=== PATIENT | female | born 1940 | race Caucasian/White ===

== ENCOUNTER 2019-02-18 11:53 | Observation (INO) | payer MEDICARE, OTHER ==
[2019-02-17 15:18] LABS: ALBUMIN 3.7 G/DL (3.4-5.0); ANION GAP 4 (8-16); BLOOD UREA NITROGEN 13 MG/DL (7-18); BUN/CREATININE RATIO 16.3 (6.6-38.0); CALCIUM 9.7 MG/DL (8.5-10.1); CHLORIDE 102 MMOL/L (99-107); GLUCOSE 87 MG/DL (70-104); POTASSIUM 3.9 MMOL/L (3.5-5.1); SODIUM 139 MMOL/L (135-145); eGFR 70 ML/MIN
[2019-02-17 15:19] LABS: BASOPHILS # (AUTO) 0.1 X10'3 (0-0.2); BASOPHILS % (AUTO) 0.9 % (0-1); EOSINOPHILS # (AUTO) 0.3 X10'3 (0-0.9); EOSINOPHILS % (AUTO) 4.7 % (0-6); HEMATOCRIT 36.8 % (35.0-45.0); HEMOGLOBIN 12.7 g/dl (12.0-16.0); LYMPHOCYTES # (AUTO) 1.9 X10'3 (1.1-4.8); LYMPHOCYTES % (AUTO) 30.6 % (21-51); MEAN CORPUSCULAR HEMOGLOBIN 28.1 PG (27.0-31.0); MEAN CORPUSCULAR HGB CONC 34.4 g/dL (33.0-36.5); MEAN CORPUSCULAR VOLUME 81.8 FL (78-98); MEAN PLATELET VOLUME 8.3 FL (7.4-10.4); MONOCYTES # (AUTO) 0.5 X10'3 (0-0.9); MONOCYTES % (AUTO) 7.9 % (2-12); NEUTROPHILS # (AUTO) 3.5 X10'3 (1.8-7.7); NEUTROPHILS % (AUTO) 55.9 % (42-75); PLATELET COUNT 200 X10'3 (140-440); RED BLOOD COUNT 4.51 X10'6 (4.20-5.60); WHITE BLOOD COUNT 6.3 X10'3 (4.5-11.0)
[2019-02-17 15:36] LABS: PARTIAL THROMBOPLASTIN TIME 28 SECONDS (22-32)
[~2019-02-18] VITALS: Ht 162.6 cm; Wt 80.4 kg
[2019-02-18] VITALS (13 sets, daily range): BP systolic 93–200; BP diastolic 52–96
[~2019-02-18 11:53] MED LIST: ALPR-304 PO; ASPI81TA52 PO; ATOR10TA87 PO; LISI-600 PO; LOP25T PO; MAX25Tt PO; OMEG1CAP PO; POTA10TA10 PO
[2019-02-18] MEDS ORDERED: diphenhydrAMINE 25mg capsule PO PRN (12:15)
[2019-02-18] MEDS ORDERED: LORazepam 0.5 MG tablet PO PRN (12:15)
[2019-02-18] MEDS ORDERED: UBID300C PO (12:19)
[2019-02-18] MEDS ORDERED: PRAV20TA4 PO (12:19)
[2019-02-18] MEDS ORDERED: NITR0.4T51 SL (12:19)
[2019-02-18] MEDS ORDERED: VALS80TA32 PO (12:19)
[2019-02-18] MEDS ORDERED: CLON0.1T20 PO (12:19)
[2019-02-18] MEDS ORDERED: LIDOcaine/PRILOcaine 5gm cream TP STA (12:25)
[2019-02-18] MEDS: normal saline 1,000 ML IV SCH ×2 (13:20→22:15)
[2019-02-18] MEDS ORDERED: nitroGLYCERIN-Tridil 50MG/D5W 250 ML IV ONE (13:30)
[2019-02-18] MEDS ORDERED: fentaNYL/PF 50MCG/1 ML 2ML syringe ONE (13:30)
[2019-02-18] MEDS ORDERED: LIDOcaine 1% (10mg/ml)w/preservative injection 20ml MDV ONE (13:30)
[2019-02-18] MEDS ORDERED: verapamil 2.5 mg/ml inj IV ONE (13:30)
[2019-02-18] MEDS ORDERED: midazolam 2 mg/2 ml injection ONE (13:30)
[2019-02-18] MEDS ORDERED: iohexol 350MG/ML 100ml bottle IV ONE ×3 (13:31→15:10)
[2019-02-18] MEDS ORDERED: heparin 1,000unit/ml 10ml vial 10 ML ONE (13:31)
[2019-02-18] MEDS ORDERED: iohexol 350 MG/ML 50ML vial IV ONE (13:31)
--- NOTE | 2019-02-18 14:00 | NUR ---
SPOKE W/ EMAIL MARKETING ASSISTANT ON ACCE TO NOTIFY THAT PT HAD GONE TO PROCEDURE AND WOULD BE TRANSFERRED DIRECTLY TO ROOM 308 POST HEART CATH (STAFFING PURPOSES ONLY) Addendum: 02/18/19 at 1453 by Jessica Junior RN Amended: Links added.
[2019-02-18] MEDS ORDERED: heparin 25,000 UNIT/250ml bag 250 ML IV ONE (14:38)
[2019-02-18] MEDS ORDERED: clopidogrel 300mg tablet ONE (15:43)
--- NOTE | 2019-02-18 16:45 | NUR ---
TRANSFERRED PT VIA [facility] TO ICU-REPORT TO UZIEL MATHEW-PT VSS STABLE, PULSES VERIFIED, NO HEMATOMA NOTED TO RT WRIST OR RT GROIN Addendum: 02/18/19 at 1711 by Jessica Junior RN Amended: Links added.
[2019-02-18] MEDS ORDERED: CLOPIDOGREL BISULFATE 300MG TAB PO ONE (17:05)
[2019-02-18] MEDS ORDERED: aspirin 81mg tab.chew PO ONE (17:10)
[2019-02-18] MEDS ORDERED: acetaminophen 325mg tablet PO PRN (17:10)
[2019-02-18] MEDS ORDERED: OXAZEpam 15mg capsule PO PRN (17:10)
[2019-02-18] MEDS ORDERED: HYDROcodone/acetaminophen 10/325mg tab PO PRN (17:10)
[2019-02-18] MEDS ORDERED: cyclobenzaprine 10mg tablet PO PRN (17:10)
[2019-02-18] MEDS: heparin 25,000 UNIT/250ml bag 250 ML IV SCH ×5 (17:12→18:27)
[2019-02-18] MEDS ORDERED: heparin 25,000 UNIT/250ml bag 250 ML IV SCH (17:15)
[2019-02-18] MEDS ORDERED: heparin 10,000 units/1 ML INJ IV PRN (17:15)
[2019-02-18] MEDS ORDERED: nitroGLYCERIN 0.4mg SUBLingual tab SL PRN (17:20)
[2019-02-18] MEDS ORDERED: hydrALAZINE 20mg/ml inj. IV PRN (18:10)
--- NOTE | 2019-02-18 18:17 | NUR ---
Problems reprioritized. Patient report given, questions answered & plan of care reviewed with Rodrigo TRIPLETT.
[2019-02-18] MEDS ORDERED: ALPRAZolam 0.25mg tablet PO PRN (20:00)
[2019-02-18] MEDS: omega-3 acid ethyl esters 1GM capsule PO SCH (20:21)
[2019-02-18] MEDS: metoprolol tartrate 25mg tablet PO SCH (20:21)
[2019-02-18] MEDS: HYDROcodone/acetaminophen 10/325mg tab PO PRN (20:34)
[2019-02-18] MEDS ORDERED: ondansetron/PF 4mg/2ml inj ONE (21:50)
[2019-02-19] VITALS: BP 123/68
--- NOTE | 2019-02-19 00:05 | NUR ---
sheath to right groin removed at 2150. Manual pressure held for 20 min and then femstop applied. Patient tolerated procedure well. No bleeding or hematoma. Addendum: 02/19/19 at 0023 by Rodrigo Paredes RN ACT 142 prior to sheath removal
--- NOTE | 2019-02-19 00:13 | NUR ---
Patient had mild reaction after administering hydralazine. Complained of shortness of breath and shortly after a rash on face was noticed. All symptoms have resolved. Discontinued the med.
[2019-02-19 02:00] VITALS: BP 132/66
[2019-02-19] MEDS: HYDROcodone/acetaminophen 10/325mg tab PO PRN (02:08)
[2019-02-19 05:29] LABS: ALBUMIN 3.1 G/DL (3.4-5.0); ANION GAP 9 (8-16); BLOOD UREA NITROGEN 11 MG/DL (7-18); BUN/CREATININE RATIO 14.9 (6.6-38.0); CALCIUM 8.4 MG/DL (8.5-10.1); CHLORIDE 102 MMOL/L (99-107); CHOL/HDL RATIO 3.4 (0.00-4.99); CHOLESTEROL 134 MG/DL (0-200); CREATININE 0.74 MG/DL (0.40-0.90); GLUCOSE 112 MG/DL (70-104); HDL CHOLESTEROL 40 MG/DL (35-60); LDL CHOLESTEROL 49 MG/DL (50-100); POTASSIUM 3.3 MMOL/L (3.5-5.1); SODIUM 138 MMOL/L (135-145); TOTAL CARBON DIOXIDE 27.4 MMOL/L (24-32); TRIGLYCERIDES 157 MG/DL (20-135); eGFR 76 ML/MIN
[2019-02-19 05:35] LABS: BASOPHILS % (AUTO) 0.4 % (0-1); EOSINOPHILS # (AUTO) 0.1 X10'3 (0-0.9); EOSINOPHILS % (AUTO) 2.1 % (0-6); LYMPHOCYTES # (AUTO) 0.8 X10'3 (1.1-4.8); MEAN CORPUSCULAR HEMOGLOBIN 28.4 PG (27.0-31.0); MEAN CORPUSCULAR HGB CONC 34.2 g/dL (33.0-36.5); MEAN CORPUSCULAR VOLUME 82.9 FL (78-98); MEAN PLATELET VOLUME 8.4 FL (7.4-10.4); MONOCYTES # (AUTO) 0.3 X10'3 (0-0.9); MONOCYTES % (AUTO) 4.8 % (2-12); NEUTROPHILS # (AUTO) 5.1 X10'3 (1.8-7.7); NEUTROPHILS % (AUTO) 79.7 % (42-75); PLATELET COUNT 159 X10'3 (140-440); RED BLOOD COUNT 3.86 X10'6 (4.20-5.60); RED CELL DISTRIBUTION WIDTH 15.1 % (11.5-14.5); WHITE BLOOD COUNT 6.3 X10'3 (4.5-11.0)
[2019-02-19 06:00] VITALS: BP 120/70
--- NOTE | 2019-02-19 06:00 | NUR ---
Preceptee documentation: I have reviewed and agree with all interventions, assessments performed and documented by UZIEL Campos
--- NOTE | 2019-02-19 06:00 | NUR ---
Problems reprioritized. Patient report given, questions answered & plan of care reviewed with UZIEL Scales.
--- NOTE | 2019-02-19 06:11 | NUR ---
Removed FEMSTOP at 0600, no bleeding, no hematoma noted.
--- NOTE | 2019-02-19 07:21 | NUR ---
Patient in room MED 308. I have received report from Beth RN and UZEIL Baptiste and had the opportunity to ask questions and assume patient care.
[2019-02-19] MEDS ORDERED: losartan 25mg tablet PO SCH (08:00)
[2019-02-19] MEDS ORDERED: triamterene/HCTZ 37.5/25mg tablet PO SCH (08:00)
[2019-02-19] MEDS ORDERED: cloNIDine 0.1 mg tablet PO SCH (08:00)
[2019-02-19] MEDS ORDERED: clopidogrel 75mg tablet PO SCH (08:00)
[2019-02-19] MEDS ORDERED: potassium chloride 10mEq ER tablet PO SCH (08:00)
[2019-02-19] MEDS ORDERED: atorvastatin 20mg tablet PO SCH (08:00)
[2019-02-19] MEDS: normal saline 1,000 ML IV SCH (08:15)
[2019-02-19] MEDS ORDERED: aspirin 325mg tablet PO SCH (08:30)
[2019-02-19 09:25] VITALS: BP_SYST 123
[2019-02-19] MEDS: metoprolol tartrate 25mg tablet PO SCH (09:25)
[2019-02-19] MEDS: omega-3 acid ethyl esters 1GM capsule PO SCH (10:53)
[2019-02-19] MEDS ORDERED: ASPI81TA52 PO (11:03)
[2019-02-19] MEDS ORDERED: CLOP75TA35 PO (11:03)
[2019-02-19] MEDS ORDERED: PRAV20TA4 PO (11:03)
--- NOTE | 2019-02-19 12:05 | NUR ---
PATIENT DISCHARGED HOME WITH SELF-CARE. AT BEDSIDE AND WILL BE PATIENTS RIDE HOME. ALL INSTRUCTIONS, INCLUDING MEDICATIONS, PLAN OF CARE, FOLLOW-UP APPOINTMENTS ADDRESSED WITH PATIENT AND . BOTH VERBALIZED UNDERSTANDING OF INSTRUCTIONS. PIV REMOVED WITH TIP INTACT, HEMOSTASIS ACHIEVED. PATIENT BROUGHT OUT TO PRIVATE VEHICLE VIA WHEELCHAIR.
[2019-02-21 05:16] LABS: ISTAT Hct MIX 34 %PCV (35-48); ISTAT O2 SATURATION MIX VENOUS 62 % (60-80); ISTAT SOURCE MIX
[2019-02-22 12:41] LABS: ISTAT HGB ART 11.6 g/dl (12.0-16.0); ISTAT Hct ART 34 %PCV (35-48); ISTAT O2 SATURATION ARTERIAL 95 % (95-98); ISTAT SOURCE ART
== END 2019-02-19 12:05 | disposition home or self-care (01) ==
LOC: SSTAY O 11:53 → ICU 2S 15:30 → UNDOADMOB 17:42 → ICU 2S 17:42 → MED 3N 02-19 00:56 → ICU 2S 02-19 00:56 → SSTAY O 02-19 12:05 → UNDODISOB 02-19 12:05
PROVIDERS: ADMIT Internal Medicine Cardiovascular Disease; ATTEND Internal Medicine Cardiovascular Disease
DX: R94.30 Abnormal result of cardiovascular function study, unspecified (principal); I10 Essential (primary) hypertension; E78.5 Hyperlipidemia, unspecified; R06.02 Shortness of breath; R53.83 Other fatigue; K21.9 Gastro-esophageal reflux disease without esophagitis; F41.9 Anxiety disorder, unspecified; K82.8 Other specified diseases of gallbladder; N39.0 Urinary tract infection, site not specified; K58.9 Irritable bowel syndrome, unspecified; Z86.73 Personal history of transient ischemic attack (TIA), and cerebral infarction without residual deficits; Z90.710 Acquired absence of both cervix and uterus; Z79.82 Long term (current) use of aspirin; Z79.899 Other long term (current) drug therapy
CPT/HCPCS: 36415; 80048; 80061; 82803; 85014; 85025; 85347; 85610; 85730; 87081; 93005; 93458; 96374; C1725; C1769; C1874; C1894; C9600; G0378; J0360; J1644; J2001; J2250; J2405; J3010; J7030; Q0163; Q9967; 99152; 99153; A6258; J3490

== ENCOUNTER 2019-03-19 04:08 | Emergency (ER) | payer MEDICARE, OTHER ==
[~2019-03-19] VITALS: Ht 162.6 cm; Wt 68.5 kg
[~2019-03-19 04:08] MED LIST changes: -ATOR10TA87 PO; +CLON0.1T2 PO; +CLOP75TA35 PO; -LISI-600 PO; +NITR0.4T51 SL; +PRAV20TA4 PO; +UBID300C PO; +VALS80TA32 PO
[2019-03-19 05:15] VITALS: BP 164/96
== END 2019-03-19 05:17 | disposition home or self-care (01) ==
LOC: ER 04:09
DX: I10 Essential (primary) hypertension (principal); I25.10 Atherosclerotic heart disease of native coronary artery without angina pectoris; Z95.5 Presence of coronary angioplasty implant and graft; Z90.710 Acquired absence of both cervix and uterus; Z88.8 Allergy status to other drugs, medicaments and biological substances; Z79.82 Long term (current) use of aspirin; Z79.899 Other long term (current) drug therapy; Z88.1 Allergy status to other antibiotic agents
CPT/HCPCS: 93005; 99283

== ENCOUNTER 2021-07-07 15:54 | Emergency (ER) | payer MEDICARE, OTHER ==
[~2021-07-07] VITALS: Ht 162.6 cm; Wt 78.2 kg
[~2021-07-07 15:54] MED LIST changes: +CLOP75TA34 PO; -CLOP75TA35 PO; -OMEG1CAP PO; +OMEG1CAP61 PO; +POTA-188 PO; -POTA10TA10 PO
[2021-07-07 17:40] LABS: BASOPHILS # (AUTO) 0.1 X10'3 (0-0.2); BASOPHILS % (AUTO) 0.8 % (0-1); EOSINOPHILS # (AUTO) 0.2 X10'3 (0-0.9); EOSINOPHILS % (AUTO) 2.1 % (0-6); HEMATOCRIT 39.3 % (35.0-45.0); HEMOGLOBIN 13.6 g/dl (12.0-16.0); LYMPHOCYTES # (AUTO) 2.3 X10'3 (1.1-4.8); LYMPHOCYTES % (AUTO) 24.1 % (21-51); MEAN CORPUSCULAR HEMOGLOBIN 28.5 PG (27.0-31.0); MEAN CORPUSCULAR HGB CONC 34.6 g/dL (33.0-36.5); MEAN CORPUSCULAR VOLUME 82.5 FL (78-98); MEAN PLATELET VOLUME 7.5 FL (7.4-10.4); MONOCYTES # (AUTO) 0.7 X10'3 (0-0.9); MONOCYTES % (AUTO) 7.2 % (2-12); NEUTROPHILS # (AUTO) 6.2 X10'3 (1.8-7.7); NEUTROPHILS % (AUTO) 65.8 % (42-75); PLATELET COUNT 204 X10'3 (140-440); RED BLOOD COUNT 4.77 X10'6 (4.20-5.60); RED CELL DISTRIBUTION WIDTH 14.2 % (11.5-14.5); WHITE BLOOD COUNT 9.3 X10'3 (4.5-11.0)
[2021-07-07 17:51] LABS: ALANINE AMINOTRANSFERASE 21 U/L (12-78); ALKALINE PHOSPHATASE 103 IU/L (46-116); ANION GAP 7 (8-16); ASPARTATE AMINO TRANSFERASE 20 U/L (10-37); BILIRUBIN,TOTAL 0.7 MG/DL (0.1-1.0); BLOOD UREA NITROGEN 13 MG/DL (7-18); BUN/CREATININE RATIO 17.8 (6.6-38.0); CALCIUM 8.9 MG/DL (8.5-10.1); CHLORIDE 97 MMOL/L (99-107); CREATININE 0.73 MG/DL (0.40-0.90); GLUCOSE 101 MG/DL (70-104); POTASSIUM 3.4 MMOL/L (3.5-5.1); SODIUM 136 MMOL/L (135-145); TOTAL CARBON DIOXIDE 32.2 MMOL/L (24-32); eGFR 77 ML/MIN
[2021-07-07] MEDS ORDERED: cloNIDine 0.1 mg tablet PO ONE (18:30)
[2021-07-07 19:18] VITALS: BP 215/109
== END 2021-07-07 21:26 | disposition home or self-care (01) ==
LOC: ER 15:55
DX: I10 Essential (primary) hypertension (principal); R51.9 Headache, unspecified; I25.10 Atherosclerotic heart disease of native coronary artery without angina pectoris; Z90.710 Acquired absence of both cervix and uterus; Z98.890 Other specified postprocedural states; Z88.8 Allergy status to other drugs, medicaments and biological substances; Z88.1 Allergy status to other antibiotic agents; Z79.82 Long term (current) use of aspirin; Z79.899 Other long term (current) drug therapy
CPT/HCPCS: 36415; 71045; 80053; 84484; 85025; 93005; 99285

== ENCOUNTER 2021-10-19 17:19 | Observation (INO) | payer MEDICARE, OTHER ==
[~2021-10-19] VITALS: Ht 160 cm; Wt 81.0 kg
[2021-10-19 18:25] LABS: BASOPHILS # (AUTO) 0.1 X10'3 (0-0.2); EOSINOPHILS # (AUTO) 0.1 X10'3 (0-0.9); EOSINOPHILS % (AUTO) 2.7 % (0-6); HEMATOCRIT 38.5 % (35.0-45.0); HEMOGLOBIN 13.1 g/dl (12.0-16.0); LYMPHOCYTES # (AUTO) 1.7 X10'3 (1.1-4.8); LYMPHOCYTES % (AUTO) 31.5 % (21-51); MEAN CORPUSCULAR HEMOGLOBIN 27.7 PG (27.0-31.0); MEAN CORPUSCULAR HGB CONC 33.9 g/dL (33.0-36.5); MEAN CORPUSCULAR VOLUME 81.7 FL (78-98); MEAN PLATELET VOLUME 7.6 FL (7.4-10.4); MONOCYTES # (AUTO) 0.4 X10'3 (0-0.9); MONOCYTES % (AUTO) 8.5 % (2-12); NEUTROPHILS % (AUTO) 56.3 % (42-75); PLATELET COUNT 203 X10'3 (140-440); RED BLOOD COUNT 4.71 X10'6 (4.20-5.60); RED CELL DISTRIBUTION WIDTH 14.4 % (11.5-14.5); WHITE BLOOD COUNT 5.3 X10'3 (4.5-11.0)
[2021-10-19 18:34] LABS: ALANINE AMINOTRANSFERASE 20 U/L (12-78); ALBUMIN/GLOBULIN RATIO 1.1 (1.1-1.5); ALKALINE PHOSPHATASE 107 IU/L (46-116); ANION GAP 4 (8-16); ASPARTATE AMINO TRANSFERASE 17 U/L (10-37); BILIRUBIN,TOTAL 0.5 MG/DL (0.1-1.0); BLOOD UREA NITROGEN 11 MG/DL (7-18); BUN/CREATININE RATIO 16.2 (6.6-38.0); CALCIUM 9.1 MG/DL (8.5-10.1); CHLORIDE 100 MMOL/L (99-107); CREATININE 0.68 MG/DL (0.40-0.90); GLUCOSE 101 MG/DL (70-104); POTASSIUM 3.4 MMOL/L (3.5-5.1); SODIUM 135 MMOL/L (135-145); TOTAL CARBON DIOXIDE 31.1 MMOL/L (24-32); TOTAL PROTEIN 7.5 G/DL (6.4-8.2); eGFR 83 ML/MIN
[2021-10-19] MEDS ORDERED: niCARdipine I.V. 50 MG in normal saline 250ml IV soln 230 ML IV SCH (20:55)
[2021-10-19] MEDS ORDERED: EVOL140P3 SQ (21:25)
[2021-10-19] MEDS ORDERED: CLOP75TA34 PO (21:26)
[2021-10-19] MEDS ORDERED: ASPI-1265 PO (21:28)
[2021-10-19] MEDS ORDERED: metoprolol tartrate 50mg tablet PO ONE (22:30)
[2021-10-19] MEDS ORDERED: ALPRAZolam 0.25mg tablet PO ONE (23:10)
[2021-10-19] MEDS ORDERED: POTASSIUM BICARB 20meq eff tab 20 MEQ TABLET.EFF PO PRN ×2 (23:50)
[2021-10-19] MEDS ORDERED: magnesium 2GM in 50ml NS 50 ML IV PRN (23:50)
[2021-10-19] MEDS ORDERED: mag hydrox/Alum hydrox/simeth 30ml oral suspension PO PRN (23:50)
[2021-10-19] MEDS ORDERED: magnesium Cl slow-release 64mg tablet PO PRN (23:50)
[2021-10-19] MEDS ORDERED: ondansetron/PF 4mg/2ml inj IV PRN (23:50)
[2021-10-19] MEDS ORDERED: magnesium 4gm in 100ml NS 100 ML IV PRN (23:50)
[2021-10-19] MEDS ORDERED: acetaminophen 325mg tablet PO PRN (23:50)
[2021-10-19] MEDS ORDERED: magnesium hydroxide 30ml (MOM) UD suspension PO PRN (23:50)
[2021-10-19] MEDS ORDERED: potassium CL 10mEq/100ml bag 100 ML IV PRN (23:50)
[2021-10-19] MEDS ORDERED: nitroGLYCERIN 0.4mg SUBLingual tab SL PRN (23:55)
[2021-10-20 00:06] LABS: MAGNESIUM 1.8 MG/DL (1.5-2.4); POTASSIUM 3.3 MMOL/L (3.5-5.1)
[2021-10-20 05:57] LABS: MAGNESIUM 1.9 MG/DL (1.5-2.4)
[2021-10-20 05:59] LABS: POTASSIUM 2.9 MMOL/L (3.5-5.1)
[2021-10-20] MEDS ORDERED: niCARDipine-NS 40mg/200ml IVPB 250 ML IV SCH (06:45)
--- NOTE | 2021-10-20 06:58 | NUR ---
PT AT BEDSIDE
[2021-10-20] MEDS ORDERED: clopidogrel 75mg tablet PO SCH (08:00)
[2021-10-20] MEDS ORDERED: aspirin 81mg tab.chew PO SCH (08:00)
[2021-10-20] MEDS ORDERED: metoprolol tartrate 50mg tablet PO SCH (08:00)
[2021-10-20] MEDS ORDERED: ALPRAZolam 0.25mg tablet PO SCH (08:00)
[2021-10-20] MEDS ORDERED: K and/or MAG REPLACEMENT MC SCH (08:00)
[2021-10-20] MEDS ORDERED: docusate sod 100mg capsule PO SCH (08:00)
[2021-10-20] MEDS ORDERED: OMEGA-3/DHA/EPA/FISH OIL 1 EACH CAPSULE.DR PO SCH (08:00)
[2021-10-20] MEDS ORDERED: amLODIPine 5mg tablet PO SCH (11:55)
[2021-10-20] MEDS ORDERED: NOR5T PO (11:56)
[2021-10-20] MEDS ORDERED: POTASSIUM BICARB 20meq eff tab 20 MEQ TABLET.EFF PO STA (12:02)
[2021-10-20 14:07] LABS: POTASSIUM 4.1 MMOL/L (3.5-5.1)
--- NOTE | 2021-10-20 14:16 | NUR ---
PATIENT'S REPEAT POTASSIUM IS 4.[address] PAL TO INFORM OF INCREASED K+ LEVEL AND DISCHARGE IN PROCESS. Message: ER BED #6. PATIENT'S REPEAT K+ LEVEL IS 4.1 SO PATIENT IS BEING DISCHARGED AT THIS TIME. QUESTIONS, CALL [phone]. THANKS.
[2021-10-20 14:36] VITALS: BP 113/80
--- NOTE | 2021-10-25 15:18 | NUR ---
Case Management DC follow up: Spoke with Patient via telephone.S/P: Patient Reports:Denies: Acute/continuous chest pain, Emergent SOB, resp distress, dyspnea, nausea/or vomiting,weakness, vertigo ,syncope episodes, headache,blurry vision, s/s of stroke/BE-FAST, dysphagia, hematuria, hematochezia, melena, unexplained bruising, bleeding, fever, chills.Verbalizes she is checking her B/P twice a day; verbalizing compliance with aftercare.Verbalizes understanding of new Rx: why prescribed; continues/resumes current Rx as ordered.Verbalizes understanding of s/s that warrant -/ER visit for further evaluation.Verbalized she has scheduled follow up appointments with , and Dr. Hyde .Verbalizes her thought the hospital stay in ER was fine if [place].Verbalizes the ER needs more than one bathroom for patients, and/or a clean bathroom would be nice.Needs met, questions/concerns addressed at DC.No further questions/concerns regarding recent hospital stay and/or DC status at this time.
== END 2021-10-20 15:51 | disposition home or self-care (01) ==
LOC: ER 17:20 → ED HOLD 23:52 → CANBEDREQ 10-20 13:11
PROVIDERS: ADMIT Internal Medicine; ATTEND Family Medicine
DX: I16.1 Hypertensive emergency (principal); I16.0 Hypertensive urgency; I10 Essential (primary) hypertension; I25.10 Atherosclerotic heart disease of native coronary artery without angina pectoris; F41.9 Anxiety disorder, unspecified; E87.6 Hypokalemia; Z79.02 Long term (current) use of antithrombotics/antiplatelets; Z79.82 Long term (current) use of aspirin; Z90.710 Acquired absence of both cervix and uterus; Z95.5 Presence of coronary angioplasty implant and graft
CPT/HCPCS: 36415; 71045; 80053; 83735; 83880; 84132; 84484; 85025; 96365; 96366; 99284; G0378; J3490; J7050

== ENCOUNTER 2022-03-11 08:55 | Inpatient (IN) | payer MEDICARE, OTHER ==
[2022-03-06 11:28] LABS: BASOPHILS # (AUTO) 0.1 X10'3 (0-0.2); BASOPHILS % (AUTO) 0.8 % (0-1); EOSINOPHILS # (AUTO) 0.2 X10'3 (0-0.9); EOSINOPHILS % (AUTO) 2.8 % (0-6); LYMPHOCYTES # (AUTO) 1.9 X10'3 (1.1-4.8); LYMPHOCYTES % (AUTO) 27.3 % (21-51); MEAN CORPUSCULAR HEMOGLOBIN 28.4 PG (27.0-31.0); MEAN CORPUSCULAR HGB CONC 34.1 g/dL (33.0-36.5); MEAN CORPUSCULAR VOLUME 83.4 FL (78-98); MEAN PLATELET VOLUME 7.1 FL (7.4-10.4); MONOCYTES # (AUTO) 0.5 X10'3 (0-0.9); MONOCYTES % (AUTO) 7.9 % (2-12); NEUTROPHILS # (AUTO) 4.2 X10'3 (1.8-7.7); NEUTROPHILS % (AUTO) 61.2 % (42-75); PRE OP PLATELET COUNT 245 X10'3 (140-440); RED BLOOD COUNT 4.56 X10'6 (4.20-5.60); RED CELL DISTRIBUTION WIDTH 13.9 % (11.5-14.5)
[2022-03-06 11:29] LABS: CLARITY,URINE CLEAR (Clear); COLOR,URINE YELLOW (Yellow); GLUCOSE, URINE NEGATIVE (Neg); KETONES,URINE NEGATIVE (Neg); LEUKOCYTE ESTERASE ,URINE NEGATIVE (Neg); NITRITES, URINE NEGATIVE (Neg); OCCULT BLOOD,URINE TRACE-INTACT (Neg); PROTEIN,URINE NEGATIVE (Neg); UROBILINOGEN,URINE 0.2 E.U/dL (0.2-1.0)
[2022-03-06 11:34] LABS: UA COLLECTION TYPE CLN CATCH MIDSTREAM
[2022-03-06 11:39] LABS: BACTERIA,URINE FEW /HPF (Neg); MUCUS STRANDS NONE SEEN /LPF (Neg); RBC,URINE 0-2 /HPF (0-2); SQUAMOUS EPITHELIAL CELL,UR FEW /LPF (FEW)
[2022-03-06 11:40] LABS: WBC CLUMPS,URINE FEW /HPF (NEGATIVE)
[2022-03-06 11:47] LABS: ALBUMIN 3.8 G/DL (3.4-5.0); ALKALINE PHOSPHATASE 117 IU/L (46-116); BLOOD UREA NITROGEN 9 MG/DL (7-18); CALCIUM 9.1 MG/DL (8.5-10.1); CHLORIDE 97 MMOL/L (99-107); CREATININE 0.75 MG/DL (0.40-0.90); PRE OP ALT 21 U/L (30-65); PRE OP ANION GAP 6 (8-16); PRE OP AST 21 U/L (10-37); PRE OP BILIRUB, TOTAL 0.6 MG/DL (0.0-1.0); PRE OP GLUCOSE 98 MG/DL (70-104); PRE OP SODIUM 135 MMOL/L (135-145); TOTAL CARBON DIOXIDE 31.9 MMOL/L (24-32); TOTAL PROTEIN 7.7 G/DL (6.4-8.2); eGFR 74 ML/MIN
[2022-03-06 11:54] LABS: PRE OP POTASSIUM 3.1 MMOL/L (3.4-5.1)
[~2022-03-11] VITALS: Ht 161.3 cm; Wt 80.7 kg
[~2022-03-11 08:55] MED LIST changes: +ACET-2119 PO; +AMLO2.5T2 PO; +ASPI-611 PO; -ASPI81TA52 PO; +CIPR-259 PO; +DOCUMENT DATE & TIME OF BETA-BLOCKER PO ONE; +EVOL140P3 SQ; -LOP25T PO; +METO-395 PO; +MUPI15CR12; -OMEG1CAP61 PO; -PRAV20TA4 PO; -UBID300C PO; -VALS80TA32 PO; +ceFAZolin inj. 2,000 MG in dextrose 5%-water 100 ML IV ONE; +famotidine 20mg tablet PO ONE; +ringers solution, lacted 1,000 ML IV SCH; +tranexamic acid 650mg tablet PO ONE; +vancomycin 1,500 MG in NS 300ml IV soln IV ONE
[2022-03-11 09:10] VITALS: BP 153/83
--- NOTE | 2022-03-11 09:10 | NUR ---
TOTAL JOINT CHARTING: PT COMPLETED MUPIROCIN OINTMENT AND HIBICLENS SHOWERS X5 DAYS ORDERED, AND READ THE BOOKLET. CSM'S INTACT TO BILAT UE EXCEPT STATES NUMBNESS TO RIGHT 4 FINGERS INTERMITTENTLY AND DECREASED ROM TO BILAT SHOULDERS. RIGHT RADIAL PULSE STRONG AND MARKED. Addendum: 03/11/22 at 1118 by Mary Martinez RN Amended: Links added.
[2022-03-11 09:41] LABS: ISTAT CREATININE 0.7 mg/dL (0.6-1.1); ISTAT HGB 14.3 g/dl (12.0-16.0); ISTAT IONIZED CALCIUM 1.28 mmol/L (1.03-1.32); POC BUN/CREATININE RATIO 18.6 (6.6-38.0)
--- NOTE | 2022-03-11 14:10 | NUR ---
SURGERY CANCELED R/T PATIENT [facility]. AND PT MADE THE DECISION TO CX SURGERY, DR WHITTAKER NOTIFIED AND DC ORDERS GIVEN. IV DC'D WITH CANNULA INTACT AND PRESSURE DSG APPLIED. PER MD PT IS TO RESTART ALL HOME MEDICATIONS INCLUDING ANTICOAGULATE MEDICATIONS AND F/U WITH THE OFFICE WHEN SHE WOULD LIKE TO RESCHEDULE. ED APPRENTICESHIP REPRESENTATIVE CALLED AND NOTIFIED OF CANCELATION AND SHE WILL F/U WITH PT. DC HOME TO PVT WITH .
[2022-03-12] MEDS ORDERED: pneumococcal 23-VAL P-sac vacc 25 mcg/0.5ml vial IMVAC ONE (12:00)
== END 2022-03-11 14:10 | disposition home or self-care (01) | DRG 554 ==
LOC: PAS IN 08:55
PROVIDERS: ADMIT Orthopaedic Surgery; ATTEND Orthopaedic Surgery
DX: M19.011 Primary osteoarthritis, right shoulder (principal)
CPT/HCPCS: 36415; 80047; 80053; 81001; 85025; 87081; 87088; J0690; J3370; J7040; J7060; J7120

== ENCOUNTER 2024-06-08 09:53 | Outpatient (CLI) | payer MEDICARE, OTHER ==
[~2024-06-08 09:53] MED LIST changes: -ACET-2119 PO; -CIPR-259 PO; +CLOB30CR11 TOP; -DOCUMENT DATE & TIME OF BETA-BLOCKER PO ONE; -EVOL140P3 SQ; -MUPI15CR12; +NITR0.4T48 SL; -NITR0.4T51 SL; -ceFAZolin inj. 2,000 MG in dextrose 5%-water 100 ML IV ONE; -famotidine 20mg tablet PO ONE; -ringers solution, lacted 1,000 ML IV SCH; -tranexamic acid 650mg tablet PO ONE; -vancomycin 1,500 MG in NS 300ml IV soln IV ONE
[2024-06-08 10:39] LABS: BILIRUBIN,URINE NEGATIVE (Neg); CLARITY,URINE CLEAR (Clear); COLOR,URINE YELLOW (Yellow); GLUCOSE, URINE NEGATIVE (Neg); KETONES,URINE NEGATIVE (Neg); LEUKOCYTE ESTERASE ,URINE NEGATIVE (Neg); NITRITES, URINE NEGATIVE (Neg); OCCULT BLOOD,URINE NEGATIVE (Neg); PH,URINE 7.5 (4.8-8.0); PROTEIN,URINE NEGATIVE (Neg); UROBILINOGEN,URINE 0.2 E.U/dL (0.2-1.0)
[2024-06-08 10:40] LABS: BASOPHILS # (AUTO) 0.1 X10'3 (0-0.2); BASOPHILS % (AUTO) 1.3 % (0-1); EOSINOPHILS # (AUTO) 0.2 X10'3 (0-0.9); HEMATOCRIT 38.7 % (35.0-45.0); LYMPHOCYTES # (AUTO) 1.8 X10'3 (1.1-4.8); LYMPHOCYTES % (AUTO) 39.3 % (21-51); MEAN CORPUSCULAR HEMOGLOBIN 28.3 PG (27.0-31.0); MEAN CORPUSCULAR HGB CONC 33.6 g/dL (33.0-36.5); MEAN CORPUSCULAR VOLUME 84.3 FL (78-98); MEAN PLATELET VOLUME 7.5 FL (7.4-10.4); MONOCYTES # (AUTO) 0.4 X10'3 (0-0.9); MONOCYTES % (AUTO) 7.9 % (2-12); NEUTROPHILS # (AUTO) 2.2 X10'3 (1.8-7.7); NEUTROPHILS % (AUTO) 47.5 % (42-75); PLATELET COUNT 211 X10'3 (140-440); RED BLOOD COUNT 4.59 X10'6 (4.20-5.60); RED CELL DISTRIBUTION WIDTH 15.3 % (11.5-14.5); WHITE BLOOD COUNT 4.6 X10'3 (4.5-11.0)
[2024-06-08 10:45] LABS: UA COLLECTION TYPE CLN CATCH MIDSTREAM
[2024-06-08 11:20] LABS: ANION GAP 5 (8-16); BILIRUBIN,TOTAL 0.5 MG/DL (0.1-1.0); BLOOD UREA NITROGEN 14 MG/DL (7-18); BUN/CREATININE RATIO 20.3 (10.0-20.0); CHLORIDE 105 MMOL/L (99-107); CREATININE 0.69 MG/DL (0.40-0.90); GLUCOSE 88 MG/DL (70-104); POTASSIUM 3.5 MMOL/L (3.5-5.1); SODIUM 143 MMOL/L (135-145); TOTAL CARBON DIOXIDE 33.3 MMOL/L (24-32); eGFR 81 ML/MIN
[2024-06-08 11:21] LABS: ALANINE AMINOTRANSFERASE 21 U/L (12-78); ALBUMIN 3.7 G/DL (3.4-5.0); ALBUMIN/GLOBULIN RATIO 0.9 (1.1-1.5); ALKALINE PHOSPHATASE 82 IU/L (46-116); ASPARTATE AMINO TRANSFERASE 16 U/L (10-37); CHOL/HDL RATIO 2.4 (0.00-4.99); CHOLESTEROL 109 MG/DL (0-200); HDL CHOLESTEROL 45 MG/DL (35-60); LDL CHOLESTEROL 22 MG/DL (50-100); THYROID STIMULATING HORMONE 8.37 ulU/ml (0.34-4.50); TOTAL PROTEIN 7.6 G/DL (6.4-8.2); TRIGLYCERIDES 198 MG/DL (20-135)
== END 2024-06-08 23:59 | disposition home or self-care (01) ==
LOC: LAB 09:53
PROVIDERS: ATTEND Family Medicine
DX: I10 Essential (primary) hypertension (principal); E78.5 Hyperlipidemia, unspecified; E03.9 Hypothyroidism, unspecified
CPT/HCPCS: 36415; 80053; 80061; 81003; 84436; 84443; 85025

== ENCOUNTER 2024-07-18 13:38 | Outpatient (CLI) | payer MEDICARE, OTHER | END 2024-07-18 23:59 | disposition home or self-care (01) | LOC: MRI 13:38 | PROVIDERS: ATTEND Physician Assistant | DX: M51.16 Intervertebral disc disorders with radiculopathy, lumbar region (principal); M47.26 Other spondylosis with radiculopathy, lumbar region; M48.07 Spinal stenosis, lumbosacral region | CPT/HCPCS: 72148 ==

== ENCOUNTER 2024-10-18 14:15 | Outpatient (CLI) | payer MEDICARE, OTHER ==
[2024-10-18 15:06] LABS: BILIRUBIN,URINE NEGATIVE (Neg); CLARITY,URINE CLEAR (Clear); COLOR,URINE YELLOW (Yellow); GLUCOSE, URINE NEGATIVE (Neg); KETONES,URINE NEGATIVE (Neg); LEUKOCYTE ESTERASE ,URINE NEGATIVE (Neg); NITRITES, URINE NEGATIVE (Neg); OCCULT BLOOD,URINE NEGATIVE (Neg); PROTEIN,URINE NEGATIVE (Neg); UROBILINOGEN,URINE 0.2 E.U/dL (0.2-1.0)
[2024-10-18 15:08] LABS: UA COLLECTION TYPE CLN CATCH MIDSTREAM
[2024-10-18 15:33] LABS: FREE T4 (FREE THYROXINE) 0.87 NG/DL (0.73-1.40); THYROID STIMULATING HORMONE 3.76 ulU/ml (0.34-4.50)
== END 2024-10-18 23:59 | disposition home or self-care (01) ==
LOC: LAB 14:15
PROVIDERS: ATTEND Physician Assistant
DX: E06.3 Autoimmune thyroiditis (principal); N39.0 Urinary tract infection, site not specified
CPT/HCPCS: 36415; 81003; 84439; 84443

== ENCOUNTER 2024-11-16 15:23 | Outpatient (CLI) | payer MEDICARE, OTHER | END 2024-11-16 23:59 | disposition home or self-care (01) | LOC: RAD 15:23 | PROVIDERS: ATTEND Physician Assistant | DX: E06.3 Autoimmune thyroiditis (principal) | CPT/HCPCS: 36415; 84439; 84443 ==